=== PATIENT | male | born 1980 | race African-American/Black ===

== ENCOUNTER 2021-02-23 04:58 | Emergency (ER) | payer OTHER ==
[~2021-02-23] VITALS: Ht 180.3 cm; Wt 83.9 kg
[2021-02-23 04:58] VITALS: BP 136/76
[2021-02-23] MEDS ORDERED: ACETAMINOPHEN 325 MG TABLET ONE (05:06)
[2021-02-23] MEDS: ACETAMINOPHEN 325 MG TABLET PO ONE (05:37)
--- NOTE | 2021-02-23 05:47 | NUR ---
Patient discharged to home in stable condition. Written and verbal after care instructions given. Patient verbalizes understanding of instruction.pt. ambulatory with a steady gait
== END 2021-02-23 05:47 | disposition home or self-care (01) ==
LOC: ER 04:59
DX: Z02.89 Encounter for other administrative examinations (principal)